=== PATIENT | male | born 1940 | race Caucasian/White ===

== ENCOUNTER 2016-10-16 15:29 | Inpatient (IN) | payer MEDICARE, OTHER ==
[~2016-10-16] VITALS: Ht 167.6 cm; Wt 76.3 kg
[~2016-10-16 15:29] MED LIST: ADVIL LIQUI-GE200 MG PO; ASPIR 8181 MG PO; BENTYL20 MG PO; BUSPAR 5MG TABLE5 MG PO; CLARITIN10 M2 PO; COGENTIN 2MG TAB2 MG PO; COLACE 100MG C100 MG PO; ELIQUIS 5 MG TAB5 MG PO; FENOFIBRATE160 MG PO; FIBER LAX625 MG PO; FISH OIL500 MG PO; FLOMAX 0.4 MG0.4 MG PO; FLONASE 0.05% N16 GM INH; ISOSORBIDE DINI30 MG PO; ISOSORBIDE1 GM PO; LEVEMIR100 UNIT/1 SQ; LEXAPRO10 MG PO; LOPRESSOR 50 MG50 MG PO; MEGACE TAB 20 M20 MG PO; MIRALAX17 GM PO; MULTAQ400 MG PO; MULTI-VITAMIN1 EACH PO; NITROGLYCERIN0.4 MG PO; NORVASC 5 MG TAB5 MG PO; NOVOLOG 10100 UNITS/ SQ; PEPTO-BISM262 MG/15 PO; PLAVIX 75 MG TA75 MG PO; PROAIR HFA8.5 GM INH; PROTONIX40 MG PO; RANEXA1000 MG PO; SIMVASTATIN40 MG PO; TYLENOL 325MG325 MG PO; VITAMIN D31000 UNI1 PO; VITAMIN D31000 UNIT PO
[2016-10-16 18:48] LABS: HEMOGLOBIN 12.5 gm/dl (14.0-17.5); RED BLOOD COUNT 4.38 M/UL (4.20-5.50); WHITE BLOOD COUNT 4.6 K/UL (4.5-11.0)
[2016-10-17] MEDS ORDERED: METOPROLOL TART25 MG PO (01:10)
[2016-10-17] MEDS ORDERED: OMEGA 3 1,0001 EACH PO (01:12)
[2016-10-17] MEDS ORDERED: RISPERIDONE0.25 MG PO (01:13)
[2016-10-17] MEDS ORDERED: SUCRALFATE1 GM PO (01:14)
[2016-10-17] MEDS ORDERED: FLOVENT DISKUS50 MCG INH (01:15)
[2016-10-17] MEDS ORDERED: VITAMIN D350000 UNIT PO (01:34)
[2016-10-17 07:42] LABS: HEMOGLOBIN 11.9 gm/dl (14.0-17.5); RED BLOOD COUNT 4.22 M/UL (4.20-5.50); WHITE BLOOD COUNT 4.7 K/UL (4.5-11.0)
[2016-10-18 03:50] LABS: HEMOGLOBIN 13.7 gm/dl (14.0-17.5); RED BLOOD COUNT 4.83 M/UL (4.20-5.50); WHITE BLOOD COUNT 5.4 K/UL (4.5-11.0)
[2016-10-19] MEDS ORDERED: CORDARONE 200M200 MG PO (14:06)
== END 2016-10-19 14:45 | disposition home or self-care (01) | DRG 309 ==
LOC: ER1 15:29 → MED SURG 4 22:05 → ZEROF 22:05 → MED SURG 4 10-17 00:47 → PROG CARE 10-17 21:12 → CCU 10-17 21:58 → PROG CARE 10-18 20:15
PROVIDERS: Emergency Medicine; Physician Assistant; ADMIT Internal Medicine
DX: I48.0 Paroxysmal atrial fibrillation (principal); I13.0 Hypertensive heart and chronic kidney disease with heart failure and stage 1 through stage 4 chronic kidney disease, or unspecified chronic kidney disease; R00.1 Bradycardia, unspecified; R10.13 Epigastric pain; E11.9 Type 2 diabetes mellitus without complications; K59.00 Constipation, unspecified; W19.XXXA Unspecified fall, initial encounter; Z51.89 Encounter for other specified aftercare; I50.9 Heart failure, unspecified; I25.10 Atherosclerotic heart disease of native coronary artery without angina pectoris; E11.43 Type 2 diabetes mellitus with diabetic autonomic (poly)neuropathy; K31.84 Gastroparesis; E11.22 Type 2 diabetes mellitus with diabetic chronic kidney disease; N18.3 Chronic kidney disease, stage 3 (moderate); F03.90 Unspecified dementia, unspecified severity, without behavioral disturbance, psychotic disturbance, mood disturbance, and anxiety; Z90.49 Acquired absence of other specified parts of digestive tract; Z98.890 Other specified postprocedural states; Z95.5 Presence of coronary angioplasty implant and graft; Z79.899 Other long term (current) drug therapy; Z79.02 Long term (current) use of antithrombotics/antiplatelets; Z79.82 Long term (current) use of aspirin; Z79.4 Long term (current) use of insulin; K21.9 Gastro-esophageal reflux disease without esophagitis
CPT/HCPCS: ECHO; 36415; 70450; 71010; 80048; 80053; 81001; 82550; 82553; 82962; 83690; 83735; 83874; 84439; 84443; 84484; 85025; 85027; 87086; 93005; 93306; 93880; 94640; 94664; 99285; J1817; J2310; J7030

== ENCOUNTER 2016-11-05 04:10 | Observation (INO) | payer MEDICARE, OTHER ==
[~2016-11-05] VITALS: Ht 167.6 cm; Wt 78.0 kg
[~2016-11-05 04:10] MED LIST changes: +CORDARONE 200M200 MG PO; +FLOVENT DISKUS50 MCG INH; +METOPROLOL TART25 MG PO; +OMEGA 3 1,0001 EACH PO; +RISPERIDONE0.25 MG PO; +SUCRALFATE1 GM PO; +VITAMIN D350000 UNIT PO
[2016-11-05 08:07] LABS: HEMOGLOBIN 11.2 gm/dl (14.0-17.5); RED BLOOD COUNT 3.92 M/UL (4.20-5.50); WHITE BLOOD COUNT 5.9 K/UL (4.5-11.0)
[2016-11-05] MEDS ORDERED: IMDUR ER TAB 3030 MG PO (13:58)
[2016-11-05] MEDS ORDERED: DOCUSATE SODIU250 MG PO (15:50)
== END 2016-11-05 17:17 | disposition home or self-care (01) ==
LOC: M/S 05:16
PROVIDERS: ADMIT Internal Medicine
DX: R07.89 Other chest pain (principal); R00.1 Bradycardia, unspecified; I25.10 Atherosclerotic heart disease of native coronary artery without angina pectoris; E11.22 Type 2 diabetes mellitus with diabetic chronic kidney disease; I12.9 Hypertensive chronic kidney disease with stage 1 through stage 4 chronic kidney disease, or unspecified chronic kidney disease; N18.3 Chronic kidney disease, stage 3 (moderate); E78.5 Hyperlipidemia, unspecified; G47.33 Obstructive sleep apnea (adult) (pediatric); K21.9 Gastro-esophageal reflux disease without esophagitis; N40.0 Benign prostatic hyperplasia without lower urinary tract symptoms; D69.6 Thrombocytopenia, unspecified; D64.9 Anemia, unspecified; F03.90 Unspecified dementia, unspecified severity, without behavioral disturbance, psychotic disturbance, mood disturbance, and anxiety; Z79.01 Long term (current) use of anticoagulants; Z79.4 Long term (current) use of insulin; Z79.82 Long term (current) use of aspirin; Z79.899 Other long term (current) drug therapy
CPT/HCPCS: 36415; 80053; 82550; 82553; 82962; 83735; 83880; 84439; 84443; 84484; 85025; 93005; G0378; G0379

== ENCOUNTER → 2016-11-11 | Outpatient (CLI) | payer MEDICARE, OTHER ==
[~2016-11-11] MED LIST changes: +DOCUSATE SODIU250 MG PO; +IMDUR ER TAB 3030 MG PO
== END ==
LOC: HEART 5 11-05 09:00
DX: R06.02 Shortness of breath (principal); I10 Essential (primary) hypertension; I08.1 Rheumatic disorders of both mitral and tricuspid valves
CPT/HCPCS: 78452; 93306; 94010; A9502; J2785

== ENCOUNTER 2020-05-23 16:18 | Inpatient (IN) | payer MEDICARE, OTHER ==
[~2020-05-23] VITALS: Ht 167.6 cm; Wt 68.0 kg
[~2020-05-23 16:18] MED LIST changes: +ALBUTEROL1.25 MG/3 INH; +ALBUTEROL2.5 MG/3 M INH; +ATIVAN0.5 MG PO; +BREO ELLIPTA 11 EACH INH; +ELESTAT5 ML EYEBOTH; +FLORASTOR250 MG PO; +HUMALOG 10100 UNITS/ SC; -IMDUR ER TAB 3030 MG PO; +IMDUR ER TAB 6060 MG PO; +INCRUSE ELLI62.5 MCG INH; +LEVEMIR FL100 UNIT/1 SQ; +LINZESS290 MCG PO; +LOPRESSOR 25 MG25 MG PO; +MOVANTIK25 MG PO; +MYRBETRIQ50 MG PO; +NOVOLOG FL100 UNIT/1 SQ; +NOVOLOG100 UNIT/1 SC; +OMNICEF 300 MG300 MG PO; -PROAIR HFA8.5 GM INH; +PROSCAR5 MG PO; +SEROQUEL TAB 2525 MG PO; +SYNTHROID50 MCG PO; +TRAMADOL HCL50 MG PO; +TYLENOL 500 MG500 MG PO; +VENTOLIN HFA 66.7 GM INH; +VITAMIN D 11000 UNIT PO; +XYZAL5 MG PO; +ZOFRAN4 MG PO
[2020-05-23 18:48] LABS: HEMOGLOBIN 10.8 gm/dl (14.0-17.5); RED BLOOD COUNT 3.89 M/UL (4.20-5.50); WHITE BLOOD COUNT 6.2 K/UL (4.5-11.0)
[2020-05-23 19:10] LABS: BUN/CREATININE RATIO 20 (0-10)
[2020-05-24] MEDS ORDERED: CLARITIN10 M2 PO (02:03)
[2020-05-24] MEDS ORDERED: DULCOLAX5 MG PO (02:11)
[2020-05-24] MEDS ORDERED: SEROQUEL TAB 2525 MG PO (02:13)
[2020-05-24] MEDS ORDERED: NOVOLOG100 UNIT/1 SQ (02:17)
[2020-05-25 06:47] LABS: BUN/CREATININE RATIO 18 (0-10)
[2020-05-25 06:57] LABS: RED BLOOD COUNT 4.17 M/UL (4.20-5.50); WHITE BLOOD COUNT 7.6 K/UL (4.5-11.0)
[2020-05-26 04:53] LABS: BUN/CREATININE RATIO 22 (0-10)
[2020-05-27 07:20] LABS: BUN/CREATININE RATIO 22 (0-10)
[2020-05-28 05:18] LABS: HEMOGLOBIN 11.2 gm/dl (14.0-17.5); RED BLOOD COUNT 4.1 M/UL (4.20-5.50); WHITE BLOOD COUNT 6.9 K/UL (4.5-11.0)
[2020-05-28 05:52] LABS: BUN/CREATININE RATIO 21 (0-10)
[2020-05-29 07:53] LABS: BUN/CREATININE RATIO 18 (0-10)
[2020-05-29] MEDS ORDERED: BENTYL 10MG CAP10 MG PO (11:44)
[2020-05-29] MEDS ORDERED: SIMVASTATIN10 MG PO (11:44)
[2020-05-29] MEDS ORDERED: LOPRESSOR 25 MG25 MG PO (11:44)
[2020-05-29] MEDS ORDERED: SENNA-TIME S T1 EACH PO (11:44)
[2020-05-29] MEDS ORDERED: IMDUR ER TAB 3030 MG PO (11:44)
--- NOTE | 2020-05-29 14:05 | NUR ---
REPORT GIVEN TO B[facility]KE [facility]ING [facility]
== END 2020-05-29 16:25 | disposition home or self-care (01) | DRG 308 ==
LOC: ER1 16:18 → M/S 05-24 01:14 → CDU 05-24 01:14 → M/S 05-24 04:55
PROVIDERS: Internal Medicine Infectious Disease; Physician Assistant Medical; ADMIT Internal Medicine
DX: I48.0 Paroxysmal atrial fibrillation (principal); I50.43 Acute on chronic combined systolic (congestive) and diastolic (congestive) heart failure; I48.91 Unspecified atrial fibrillation; I48.92 Unspecified atrial flutter; I11.0 Hypertensive heart disease with heart failure; E11.9 Type 2 diabetes mellitus without complications; Z20.828 Contact with and (suspected) exposure to other viral communicable diseases; E78.5 Hyperlipidemia, unspecified; G47.33 Obstructive sleep apnea (adult) (pediatric); N40.0 Benign prostatic hyperplasia without lower urinary tract symptoms; K21.9 Gastro-esophageal reflux disease without esophagitis; I49.5 Sick sinus syndrome; E03.9 Hypothyroidism, unspecified; I25.10 Atherosclerotic heart disease of native coronary artery without angina pectoris; E87.6 Hypokalemia; D53.9 Nutritional anemia, unspecified; F03.90 Unspecified dementia, unspecified severity, without behavioral disturbance, psychotic disturbance, mood disturbance, and anxiety; K31.84 Gastroparesis; R10.9 Unspecified abdominal pain; Z79.899 Other long term (current) drug therapy; Z79.01 Long term (current) use of anticoagulants; Z86.19 Personal history of other infectious and parasitic diseases; Z79.4 Long term (current) use of insulin; Z90.49 Acquired absence of other specified parts of digestive tract
CPT/HCPCS: 36415; 71045; 71046; 80048; 80053; 80061; 82550; 82553; 82962; 83605; 83735; 83874; 83880; 84439; 84443; 84484; 85025; 86140; 93005; 94640; 94664; 94760; 96365; 96375; 99285; J1160; J1940; J2543; Q9967; U0002

== ENCOUNTER → 2020-06-08 | Outpatient (CLI) | payer MEDICARE, OTHER ==
[~2020-06-08] MED LIST changes: +BENTYL 10MG CAP10 MG PO; +BUSPIRONE HCL5 MG PO; +COMPLETE SENIO1 EACH PO; +DOXYCYCLINE HY100 M2 PO; +DULCOLAX5 MG PO; +IMDUR ER TAB 3030 MG PO; +ISOSORBIDE MON120 MG PO; +LEVOCETIRIZINE D5 MG PO; +LEVOTHYROXINE50 MC1 PO; +NOVOLOG100 UNIT/1 SQ; +SENNA-TIME S T1 EACH PO; +SIMVASTATIN10 MG PO; +TIKOSYN250 MCG PO; +ZOCOR40 MG PO
== END ==
LOC: RAD 11:40
DX: R09.89 Other specified symptoms and signs involving the circulatory and respiratory systems (principal); R91.8 Other nonspecific abnormal finding of lung field
CPT/HCPCS: 71046

== ENCOUNTER → 2020-06-15 | Outpatient (CLI) | payer MEDICARE, OTHER | LOC: RAD 07:49 | DX: R13.10 Dysphagia, unspecified (principal); K22.4 Dyskinesia of esophagus; K44.9 Diaphragmatic hernia without obstruction or gangrene | CPT/HCPCS: 74246 ==

== ENCOUNTER 2020-07-23 02:20 | Inpatient (IN) | payer MEDICARE, OTHER ==
[~2020-07-23] VITALS: Ht 167.6 cm; Wt 54.6 kg
[~2020-07-23 02:20] MED LIST changes: -BUSPIRONE HCL5 MG PO; -COMPLETE SENIO1 EACH PO; -DOXYCYCLINE HY100 M2 PO; -ISOSORBIDE MON120 MG PO; -LEVOCETIRIZINE D5 MG PO; -LEVOTHYROXINE50 MC1 PO; -TIKOSYN250 MCG PO; -ZOCOR40 MG PO
[2020-07-23] MEDS ORDERED: LOPRESSOR 25 MG25 MG PO (21:45)
[2020-07-23] MEDS ORDERED: ZOCOR40 MG PO (21:46)
[2020-07-23] MEDS ORDERED: LEVOTHYROXINE50 MC1 PO (21:47)
[2020-07-23] MEDS ORDERED: CLARITIN10 M2 PO (21:47)
[2020-07-23] MEDS ORDERED: LEVOCETIRIZINE D5 MG PO (21:48)
[2020-07-23] MEDS ORDERED: ISOSORBIDE MON120 MG PO (21:49)
[2020-07-23] MEDS ORDERED: TRAMADOL HCL50 MG PO (21:55)
[2020-07-23] MEDS ORDERED: BUSPIRONE HCL5 MG PO (21:55)
[2020-07-23] MEDS ORDERED: COMPLETE SENIO1 EACH PO (21:58)
[2020-07-23] MEDS ORDERED: RISPERIDONE0.25 MG PO (22:00)
[2020-07-23] MEDS ORDERED: LINZESS290 MCG PO (22:04)
[2020-07-23 23:11] LABS: HEMOGLOBIN 12.3 gm/dl (14.0-17.5); RED BLOOD COUNT 4.44 M/UL (4.20-5.50); WHITE BLOOD COUNT 9.1 K/UL (4.5-11.0)
[2020-07-23 23:34] LABS: BUN/CREATININE RATIO 23 (0-10)
[2020-07-26 04:06] LABS: HEMOGLOBIN 10.5 gm/dl (14.0-17.5)
[2020-07-26 04:07] LABS: RED BLOOD COUNT 3.86 M/UL (4.20-5.50); WHITE BLOOD COUNT 5.1 K/UL (4.5-11.0)
[2020-07-26 04:25] LABS: BUN/CREATININE RATIO 19 (0-10)
[2020-07-26] MEDS ORDERED: TIKOSYN250 MCG PO (11:05)
[2020-07-26] MEDS ORDERED: DOXYCYCLINE HY100 M2 PO (11:05)
== END 2020-07-26 15:20 | disposition home or self-care (01) | DRG 309 ==
LOC: PROG CARE 20:40
PROVIDERS: Internal Medicine; ADMIT Internal Medicine
DX: I48.20 Chronic atrial fibrillation, unspecified (principal); I50.42 Chronic combined systolic (congestive) and diastolic (congestive) heart failure; I48.0 Paroxysmal atrial fibrillation; I11.0 Hypertensive heart disease with heart failure; F03.90 Unspecified dementia, unspecified severity, without behavioral disturbance, psychotic disturbance, mood disturbance, and anxiety; E11.9 Type 2 diabetes mellitus without complications; I25.10 Atherosclerotic heart disease of native coronary artery without angina pectoris; D64.9 Anemia, unspecified; E83.42 Hypomagnesemia; D69.6 Thrombocytopenia, unspecified; E78.5 Hyperlipidemia, unspecified; I49.5 Sick sinus syndrome; E11.43 Type 2 diabetes mellitus with diabetic autonomic (poly)neuropathy; K31.84 Gastroparesis; E78.00 Pure hypercholesterolemia, unspecified; G47.33 Obstructive sleep apnea (adult) (pediatric); K21.9 Gastro-esophageal reflux disease without esophagitis; N40.0 Benign prostatic hyperplasia without lower urinary tract symptoms; Z98.890 Other specified postprocedural states; Z79.01 Long term (current) use of anticoagulants; Z86.16 Personal history of COVID-19; Z95.5 Presence of coronary angioplasty implant and graft
CPT/HCPCS: 36415; 71045; 80048; 80053; 82550; 82553; 82962; 83735; 83880; 84439; 84443; 84484; 85025; 93005; 94640; 94760; J3475; U0002

== ENCOUNTER → 2020-10-02 | Outpatient (CLI) | payer MEDICARE, OTHER ==
[~2020-10-02] MED LIST changes: +BUSPIRONE HCL5 MG PO; +COMPLETE SENIO1 EACH PO; +DOXYCYCLINE HY100 M2 PO; +ISOSORBIDE MON120 MG PO; +LEVOCETIRIZINE D5 MG PO; +LEVOTHYROXINE50 MC1 PO; +TIKOSYN250 MCG PO; +ZOCOR40 MG PO
== END ==
LOC: RT 09:04
DX: Z87.09 Personal history of other diseases of the respiratory system (principal); R09.02 Hypoxemia; J84.9 Interstitial pulmonary disease, unspecified
CPT/HCPCS: 36600; 71046; 82803

== ENCOUNTER → 2020-10-10 | Outpatient (CLI) | payer MEDICARE, OTHER | LOC: KOH-I 10-09 14:30 | DX: J84.10 Pulmonary fibrosis, unspecified (principal); R91.1 Solitary pulmonary nodule | CPT/HCPCS: 71250 ==

== ENCOUNTER → 2020-11-27 | Outpatient (CLI) | payer MEDICARE, OTHER | LOC: RAD 09:30 | DX: R13.10 Dysphagia, unspecified (principal); F32.9 Major depressive disorder, single episode, unspecified; I10 Essential (primary) hypertension; K21.9 Gastro-esophageal reflux disease without esophagitis; N40.0 Benign prostatic hyperplasia without lower urinary tract symptoms; E78.5 Hyperlipidemia, unspecified; I25.2 Old myocardial infarction; I48.91 Unspecified atrial fibrillation; K44.9 Diaphragmatic hernia without obstruction or gangrene; K22.4 Dyskinesia of esophagus | CPT/HCPCS: 74220 ==

== ENCOUNTER 2021-05-15 09:14 | Emergency (ER) | payer MEDICARE, OTHER ==
[~2021-05-15 09:14] MED LIST changes: +AMIODARONE HCL200 MG PO; +ATORVASTATIN CA20 MG PO; +CARAFATE1 GM PO; +LASIX20 MG PO; +NAMENDA10 MG PO
[2021-05-15 10:27] LABS: RED BLOOD COUNT 3.97 M/UL (4.20-5.50); WHITE BLOOD COUNT 7.5 K/UL (4.5-11.0)
[2021-05-15 11:13] LABS: BUN/CREATININE RATIO 22 (0-10)
== END 2021-05-15 16:40 | disposition home or self-care (01) ==
LOC: ER1 09:14
PROVIDERS: Family Medicine
DX: R07.9 Chest pain, unspecified (principal); E78.5 Hyperlipidemia, unspecified; Z95.0 Presence of cardiac pacemaker; E11.9 Type 2 diabetes mellitus without complications; I51.9 Heart disease, unspecified; K21.9 Gastro-esophageal reflux disease without esophagitis
CPT/HCPCS: 71045; 71046; 80053; 82550; 82553; 83874; 84484; 85025; 93005

== ENCOUNTER 2021-08-24 14:19 | Inpatient (IN) | payer MEDICARE, OTHER ==
[~2021-08-24] VITALS: Ht 167.6 cm; Wt 69.9 kg
[~2021-08-24 14:19] MED LIST changes: -BUSPIRONE HCL5 MG PO; -LASIX20 MG PO; +LASIX40 MG PO; +TERBINAFINE HC250 MG PO
[2021-08-24 14:29] LABS: HEMOGLOBIN 12.1 gm/dl (14.0-17.5); RED BLOOD COUNT 4.19 M/UL (4.20-5.50); WHITE BLOOD COUNT 12.5 K/UL (4.5-11.0)
[2021-08-24] MEDS ORDERED: FAMOTIDINE20 MG PO (20:36)
[2021-08-24] MEDS ORDERED: HYDROXYZINE HCL10 MG PO ×2 (20:38→20:40)
[2021-08-24] MEDS ORDERED: ALBUTEROL2.5 MG/3 M INH (20:42)
[2021-08-24] MEDS ORDERED: ZEBETA 5 MG TAB5 MG PO (20:42)
[2021-08-24] MEDS ORDERED: LEVOTHYROXINE50 MCG PO (20:43)
[2021-08-24] MEDS ORDERED: MYRBETRIQ50 MG PO (20:49)
[2021-08-24] MEDS ORDERED: QUETIAPINE FUMA25 MG PO (20:50)
[2021-08-24] MEDS ORDERED: LEVEMIR FL100 UNIT/1 SQ (20:52)
[2021-08-24] MEDS ORDERED: PREDNISONE5 MG PO (21:06)
[2021-08-24] MEDS ORDERED: DONEPEZIL HCL10 MG PO (21:08)
[2021-08-24] MEDS ORDERED: NITROGLYCERIN0.4 MG SL (21:10)
[2021-08-24] MEDS ORDERED: MELATONIN5 M2 PO (21:12)
[2021-08-24] MEDS ORDERED: BUSPIRONE HCL15 MG PO (21:55)
[2021-08-24] MEDS ORDERED: TRAMADOL HCL50 MG PO (21:55)
[2021-08-25 03:50] LABS: HEMOGLOBIN 12.3 gm/dl (14.0-17.5); RED BLOOD COUNT 4.27 M/UL (4.20-5.50); WHITE BLOOD COUNT 9.4 K/UL (4.5-11.0)
[2021-08-25 04:18] LABS: BUN/CREATININE RATIO 21 (0-10)
[2021-08-25] MEDS ORDERED: NOVOLOG FL100 UNIT/1 SQ (10:30)
[2021-08-25] MEDS ORDERED: VITAMIN D325 MCG PO (10:31)
[2021-08-25] MEDS ORDERED: DOCUSATE SODIU100 MG PO (10:50)
[2021-08-26 02:52] LABS: HEMOGLOBIN 12.2 gm/dl (14.0-17.5); RED BLOOD COUNT 4.19 M/UL (4.20-5.50); WHITE BLOOD COUNT 8.5 K/UL (4.5-11.0)
[2021-08-27 04:56] LABS: HEMOGLOBIN 11.1 gm/dl (14.0-17.5); RED BLOOD COUNT 3.94 M/UL (4.20-5.50); WHITE BLOOD COUNT 8.8 K/UL (4.5-11.0)
[2021-08-27] MEDS ORDERED: CARAFATE1 GM PO (12:14)
== END 2021-08-27 15:49 | disposition home or self-care (01) | DRG 286 ==
LOC: ER1 14:19 → CDU 17:44 → MED SURG 4 18:39
PROVIDERS: Physician Assistant; ADMIT Internal Medicine
PROC: B24BZZZ Ultrasonography of Heart with Aorta (ICD-10-PCS; principal; 2021-08-25)
PROC: 4A023N7 Measurement of Cardiac Sampling and Pressure, Left Heart, Percutaneous Approach (ICD-10-PCS; 2021-08-27)
PROC: B2111ZZ Fluoroscopy of Multiple Coronary Arteries using Low Osmolar Contrast (ICD-10-PCS; 2021-08-27)
DX: R07.9 Chest pain, unspecified (principal); I50.33 Acute on chronic diastolic (congestive) heart failure; I13.0 Hypertensive heart and chronic kidney disease with heart failure and stage 1 through stage 4 chronic kidney disease, or unspecified chronic kidney disease; Z20.822 Contact with and (suspected) exposure to COVID-19; I48.20 Chronic atrial fibrillation, unspecified; N17.9 Acute kidney failure, unspecified; I48.0 Paroxysmal atrial fibrillation; R10.13 Epigastric pain; N18.30 Chronic kidney disease, stage 3 unspecified; I25.10 Atherosclerotic heart disease of native coronary artery without angina pectoris; E11.22 Type 2 diabetes mellitus with diabetic chronic kidney disease; E78.5 Hyperlipidemia, unspecified; I08.1 Rheumatic disorders of both mitral and tricuspid valves; J44.9 Chronic obstructive pulmonary disease, unspecified; E03.9 Hypothyroidism, unspecified; Z95.5 Presence of coronary angioplasty implant and graft; Z79.01 Long term (current) use of anticoagulants; Z95.0 Presence of cardiac pacemaker; Z90.49 Acquired absence of other specified parts of digestive tract; Z88.8 Allergy status to other drugs, medicaments and biological substances; Z82.49 Family history of ischemic heart disease and other diseases of the circulatory system; Z83.3 Family history of diabetes mellitus; Z80.9 Family history of malignant neoplasm, unspecified
CPT/HCPCS: ECHO; 36415; 36600; 71045; 71046; 80048; 80053; 81001; 82550; 82553; 82803; 82962; 83036; 83605; 83735; 83880; 84484; 85025; 93005; 93306; 94640; 94760; 96374; 96376; 99152; 99285; C1769; C1894; C9113; G0378; J1644; J1940; J2250; J3010; J7030; Q9965; U0002

== ENCOUNTER → 2021-09-26 | Day surgery (SDC) | payer MEDICARE, OTHER ==
[~2021-09-26] MED LIST changes: +BUSPIRONE HCL15 MG PO; +DOCUSATE SODIU100 MG PO; +DONEPEZIL HCL10 MG PO; +FAMOTIDINE20 MG PO; +HYDROXYZINE HCL10 MG PO; +LEVOTHYROXINE50 MCG PO; +MELATONIN5 M2 PO; +NITROGLYCERIN0.4 MG SL; +PREDNISONE5 MG PO; +QUETIAPINE FUMA25 MG PO; +VITAMIN D325 MCG PO; +ZEBETA 5 MG TAB5 MG PO
== END | disposition home or self-care (01) ==
LOC: OR 05:53
DX: K21.00 Gastro-esophageal reflux disease with esophagitis, without bleeding (principal); K29.50 Unspecified chronic gastritis without bleeding; I25.10 Atherosclerotic heart disease of native coronary artery without angina pectoris; J44.9 Chronic obstructive pulmonary disease, unspecified; E03.9 Hypothyroidism, unspecified; K31.84 Gastroparesis; E78.5 Hyperlipidemia, unspecified; E11.9 Type 2 diabetes mellitus without complications; F32.A Depression, unspecified; Z95.5 Presence of coronary angioplasty implant and graft; Z79.01 Long term (current) use of anticoagulants; Z79.4 Long term (current) use of insulin; Z79.899 Other long term (current) drug therapy; Z88.1 Allergy status to other antibiotic agents; Z88.8 Allergy status to other drugs, medicaments and biological substances; Z90.49 Acquired absence of other specified parts of digestive tract
CPT/HCPCS: J2704; J7040

== ENCOUNTER → 2021-10-08 | Outpatient (CLI) | payer MEDICARE, OTHER | LOC: KOH-I 13:00 | DX: J84.10 Pulmonary fibrosis, unspecified (principal); J18.9 Pneumonia, unspecified organism | CPT/HCPCS: 71250 ==

== ENCOUNTER → 2021-12-24 | Outpatient (CLI) | payer MEDICARE, OTHER | LOC: CT 11-19 09:30 | DX: R10.10 Upper abdominal pain, unspecified (principal) | CPT/HCPCS: 36415; 82565; 84520; Q9967 ==